=== PATIENT | female | born 1950 | race Caucasian/White ===

== ENCOUNTER → 2017-12-05 | Outpatient (CLI) | payer MEDICARE, OTHER ==
[~2017-12-05] MED LIST: ALENDRONATE SOD70 MG PO; APAP500 PO; BENAZEPRIL-HCT1 EA10 PO; COLACE100 MG PO; ECOTRIN325 MG PO; FENOFIBRATE160 MG PO; GLASSIA IV; KLONOPIN1 MG PO; KLOR-CON 1010 MEQ PO; LASIX 20 MG TAB20 MG PO; MIRALAX17 GM PO; MULTI-VITAMIN1 EAC5 PO; OXYBUTYNIN 5 MG5 M2 PO; PROAIR HFA8.5 GM INH; ROXICODONE5 M2 PO; SYMBICORT160 MCG/4. INH; TRANSDERM-SCO1 PATC1 TD; VITAMIN D1000 UNI1 PO; XARELTO10 MG PO
== END ==
LOC: M.LAB 04:46
DX: Z01.812 Encounter for preprocedural laboratory examination (principal)